=== PATIENT | female | born 1970 | race African-American/Black ===

== ENCOUNTER 2021-12-08 22:55 | Emergency (ER) | payer MEDICAID, OTHER ==
[~2021-12-08] VITALS: Ht 175.3 cm; Wt 84.4 kg
[~2021-12-08 22:55] MED LIST: DIPH25SG5; PRED10TA
--- NOTE | 2021-12-08 23:02 | NUR ---
EXAMINED BY LETTY BOWEN IN TRIAGE
[2021-12-08 23:03] VITALS: BP 137/79
[2021-12-08] MEDS ORDERED: NAPR-54 PO (23:08)
[2021-12-08] MEDS ORDERED: CLAR500T99 PO (23:08)
--- NOTE | 2021-12-08 23:14 | NUR ---
SEEN BY LETTY NO NURSING INTERVENTIONS PROVIDED FOR PATIENT. LETTY BOWEN DISCHARGED PATIENT.
== END 2021-12-08 23:14 | disposition home or self-care (01) ==
LOC: MED 22:55
DX: H65.191 Other acute nonsuppurative otitis media, right ear (principal); S76.911A Strain of unspecified muscles, fascia and tendons at thigh level, right thigh, initial encounter; F17.210 Nicotine dependence, cigarettes, uncomplicated; Z79.1 Long term (current) use of non-steroidal anti-inflammatories (NSAID); Z79.2 Long term (current) use of antibiotics; Z79.899 Other long term (current) drug therapy; Z88.0 Allergy status to penicillin
CPT/HCPCS: 99283

== ENCOUNTER 2022-02-03 22:30 | Emergency (ER) | payer OTHER ==
[~2022-02-03] VITALS: Ht 175.3 cm; Wt 82.6 kg
[~2022-02-03 22:30] MED LIST changes: +CLAR500T99 PO; +NAPR-54 PO
[2022-02-03 23:30] VITALS: BP 138/93
--- NOTE | 2022-02-03 23:35 | NUR ---
SWAB COLLECTED TAKEN TO LAB. PT TO RR FOR URINE COLLECTION THEN TO WAIT IN LOBBY.
--- NOTE | 2022-02-04 00:56 | NUR ---
MARIANAD EXAMINING PT.
--- NOTE | 2022-02-04 00:58 | NUR ---
+RUNNY NOSE, INCREASED SNEEZING, H/A X3DAYS. PT STATES SHE WORKED WITH A PT WHO TESTED POS FOR COVID LAST WEEK. PT ALSO REPORTS LOWER BACK/FLANK PAIN. \ DENIES HX, RX ALLERGY:KILLIAN
[2022-02-04] MEDS ORDERED: KETOROLAC 60 MG/2 ML VIAL IM ONE (01:05)
[2022-02-04] MEDS ORDERED: LORA1T1237 PO (01:22)
[2022-02-04] MEDS ORDERED: CYCL-711 PO (01:22)
[2022-02-04] MEDS ORDERED: FLUT0.0560 NS (01:22)
[2022-02-04] MEDS ORDERED: NAPR-54 PO (01:22)
[2022-02-04 01:27] VITALS: BP 138/93
--- NOTE | 2022-02-04 01:27 | NUR ---
Patient discharged with v/s stable. Written and verbal after care instructions given and explained. Patient alert, oriented and verbalized understanding of instructions. Ambulatory with steady gait. All questions addressed prior to discharge. ID band removed. Patient advised to follow up with PMD. Rx of CLARITIN, FLUTICASONE, FLEXERIL, NAPRSOYN given. Patient educated on indication of medication including possible reaction and side effects. Opportunity to ask questions provided and answered.
== END 2022-02-04 01:27 | disposition home or self-care (01) ==
LOC: MED 22:30
DX: R51.9 Headache, unspecified (principal); Z20.822 Contact with and (suspected) exposure to COVID-19
CPT/HCPCS: 81002; 87426; 96372; 99283; J1885

== ENCOUNTER 2022-04-29 22:24 | Emergency (ER) | payer OTHER ==
[~2022-04-29] VITALS: Ht 175.3 cm; Wt 79.8 kg
[~2022-04-29 22:24] MED LIST changes: +CYCL-711 PO; +FLUT0.0560 NS; +LORA1T1237 PO
[2022-04-29 23:00] VITALS: BP 102/64
--- NOTE | 2022-04-30 03:15 | NUR ---
Patient taken to bed 5.
--- NOTE | 2022-04-30 03:17 | NUR ---
Dr. Parker examining patient.
[2022-04-30] MEDS ORDERED: KETOROLAC 30 MG/ML VIAL IM ONE (03:40)
[2022-04-30] MEDS ORDERED: NAPR-54 PO (03:52)
[2022-04-30] MEDS ORDERED: DIAZ5TAB6 PO (03:52)
[2022-04-30] MEDS ORDERED: LID5T TP (03:52)
--- NOTE | 2022-04-30 04:00 | NUR ---
Patient discharged with v/s stable. Written and verbal after care instructions given and explained. Patient alert, oriented and verbalized understanding of instructions. Ambulatory with steady gait. All questions addressed prior to discharge. ID band removed. Patient advised to follow up with PMD. Rx of VALIUM LIDODERM PATCH NAPROSYN given.
[2022-04-30 04:19] VITALS: BP 115/64
--- NOTE | 2022-04-30 04:19 | NUR ---
The patient's care was reviewed and supervised by Kyleigh Tipton RN.
[2022-05-02] MEDS ORDERED: LID5T TP (09:38)
[2022-05-02] MEDS ORDERED: NAPR-54 PO (09:38)
== END 2022-04-30 04:00 | disposition home or self-care (01) ==
LOC: MED 22:24
DX: M54.50 Low back pain, unspecified (principal); Z88.0 Allergy status to penicillin; Z79.899 Other long term (current) drug therapy; Z90.710 Acquired absence of both cervix and uterus
CPT/HCPCS: 81002; 96372; 99283; J1885

== ENCOUNTER 2022-08-03 23:19 | Emergency (ER) | payer OTHER ==
[~2022-08-03] VITALS: Ht 175.3 cm; Wt 78.5 kg
[~2022-08-03 23:19] MED LIST changes: +DIAZ5TAB6 PO; +LID5T TP
[2022-08-03 23:39] VITALS: BP 124/82
--- NOTE | 2022-08-03 23:41 | NUR ---
to lobby a/w bed ambulatory
--- NOTE | 2022-08-03 23:51 | NUR ---
PT TAKEN TO RADIOLOGY
--- NOTE | 2022-08-03 23:58 | NUR ---
PT RETURN FROM RADIOLOGY TO ER BED 3
[2022-08-04] MEDS ORDERED: IBUP-2213 PO (01:45)
[2022-08-04 02:52] VITALS: BP 132/72
--- NOTE | 2022-08-04 03:03 | NUR ---
NOT COMPLAINING OF PAIN PATIENT STABLE GOING HOME FEELING WELL ALL DC INSTRUCTION GAVE AND EXPLAINED WE RECOMMEND TO FOLLOW UP WITH PCP VITALS SIGNS IN NORMAL LIMITS
== END 2022-08-04 03:03 | disposition home or self-care (01) ==
LOC: MED 23:19
DX: S63.502A Unspecified sprain of left wrist, initial encounter (principal); Z88.0 Allergy status to penicillin; X58.XXXA Exposure to other specified factors, initial encounter; Y93.89 Activity, other specified; Y92.89 Other specified places as the place of occurrence of the external cause; Y99.8 Other external cause status
CPT/HCPCS: 73130; 99283

== ENCOUNTER 2023-02-04 22:38 | Emergency (ER) | payer OTHER ==
[~2023-02-04] VITALS: Ht 175.3 cm; Wt 77.6 kg
[~2023-02-04 22:38] MED LIST changes: +IBUP-2213 PO
[2023-02-04 23:12] VITALS: BP 146/89; PULSE 83; RESP 17; TEMP 97.8; O2SAT 100
--- NOTE | 2023-02-04 23:15 | NUR ---
to lobby a/w bed ambulatory
--- NOTE | 2023-02-05 01:20 | NUR ---
PT BIB herself with c/o colds for 2 days.Conscious, AAOx4. PMHx of Herperthyroidism without medication. Allergies on Pennicillin. Had taken Robitusin yesterday.
--- NOTE | 2023-02-05 01:33 | NUR ---
Dr. Yeager examining patient.
[2023-02-05] MEDS ORDERED: ACETAMINOPHEN 325 MG TAB PO ONE (01:35)
[2023-02-05] MEDS ORDERED: BENZ100C6 PO (01:38)
[2023-02-05] MEDS ORDERED: ACET-10509 PO (01:38)
[2023-02-05 01:48] VITALS: BP 136/83; PULSE 70; RESP 19; TEMP 98.7; O2SAT 100
--- NOTE | 2023-02-05 01:48 | NUR ---
Patient discharged with v/s stable. Written and verbal after care instructions given and explained. Patient alert, oriented and verbalized understanding of instructions. Ambulatory with steady gait. All questions addressed prior to discharge. ID band removed. Patient advised to follow up with PMD. Rx of BENZONATATE AND TYLENOL given. Patient educated on indication of medication including possible reaction and side effects. Opportunity to ask questions provided and answered.
== END 2023-02-05 01:48 | disposition home or self-care (01) ==
LOC: MED 22:38
DX: J06.9 Acute upper respiratory infection, unspecified (principal); Z20.822 Contact with and (suspected) exposure to COVID-19; Z86.39 Personal history of other endocrine, nutritional and metabolic disease; Z79.899 Other long term (current) drug therapy; Z79.1 Long term (current) use of non-steroidal anti-inflammatories (NSAID); Z79.2 Long term (current) use of antibiotics; Z88.0 Allergy status to penicillin
CPT/HCPCS: 99283